=== PATIENT | male | born 1940 | race Caucasian/White ===

== ENCOUNTER → 2018-02-21 10:14 | Outpatient (CLI) | payer MEDICARE ==
[~2018-02-21 10:14] MED LIST: BAYER CHEWABLE81 MG PO; COZAAR100 MG PO; HYDROCHLOROTH12.5 M1 PO; HYDROCODON-ACE1 EAC7 PO; ZOCOR40 MG PO
[2018-03-10 13:24] VITALS: BMI 28.6
== END | disposition home or self-care (01) ==
LOC: D.US 08:30
DX: R74.8 Abnormal levels of other serum enzymes (principal)

== ENCOUNTER 2018-03-07 15:27 | Inpatient (IN) | payer MEDICARE ==
[2018-03-07] VITALS (7 sets, daily range): BP systolic 140–174; BP diastolic 75–99; BMI 30.1
[~2018-03-07] VITALS: Ht 177.8 cm; Wt 90.7 kg
--- NOTE | ~2018-03-07 | MORECARE ---
CASE MANAGEMENT DISCHARGE SUMMARY PATIENT: JERMAIN MADDEN UNIT: [id number] ADM DATE: 03/07/18 AGE: 77 : 42 SEX: M ROOM/BED: D.2130 AUTHOR: ANGELINE,DOC PHYSICIAN: REFERRING PHYSICIAN: ANGELIQUE FIGUEROA MD DATE OF SERVICE: 03/11/18 Discharge Plan Patient Name: JERMAIN MADDEN Facility: [facility]:[place] : 1940 Planned Disposition: Home Anticipated Discharge Date: 03/11/18 Discharge Date: 03/11/2018 Expected LOS: 4 Initial Reviewer: [email or web address] Initial Review Date: 03/11/2018 Generated: 03/11/18 5:56 pm Comments DCP- Discharge Planning Updated by [id number]: Cesar Greene on 03/11/18 3:[address] Patient Name: JERMAIN MADDEN Admission Status: ER Accout number: [id number] Admission Date: 03-07-2018 : 1940 Admission Diagnosis:BILIARY ACUTE PANCREATITIS WITHOUT NECROSIS OR INFECTIO Attending: ANGELIQUE FIGUEROA Current LOS: 4 Anticipated DC Date: 03-11-2018 Planned Disposition: Home Primary Insurance: [facility] [employer] [employer] Discharge Planning Comments: CM MET WITH PT AND SPOUSE IN ROOM TO DISCUSS DISCHARGE PLANNING AND NEEDS. JERMAIN MADDEN provided verbal consent to discuss current and ongoing needs with/in the presence of: SPOUSE, FAYE. PT REPORTS LIVING AT HOME INDEPENDENTLY WITH SPOUSE. PT HAS NO MEDICAL EQUIPMENT AND NO OUTSIDE SERVICES ASSISTING IN THE HOME. CM DISCUSSED AVAILABILITY OF HOME HEALTH, REHAB SERVICES AND MEDICAL EQUIPMENT. PT DENIES DISCHARGE NEEDS, REPORTS HIS IS HERE TO PICK HIM UP FOR DISCHARGE HOME. IMPORTANT MESSAGE FROM MEDICARE PROVIDED AND EXPLAINED. MAINTAINER PLANT NURSE NOTIFIED. Lot Technician: Cesar Greene DCPIA - Discharge Planning Initial Assessment Updated by [email or web address]: Cesar Greene on 03/11/18 4:54 pm * Is the patient Alert and Oriented? Yes * How many steps to enter\exit or inside your home? NONE * PCP DR. GUZMÁN * Pharmacy [facility] * Preadmission Environment Home with Family * ADLs Independent * Equipment None * Other Equipment [facility] - MEDICAL EQUIPMENT PROVIDER * List name and contact numbers for known caregivers / representatives who currently or will assist patient after discharge: KI WETZEL, * Verbal permission to speak to the caregivers and representatives has been obtained from the patient. Yes * Community resources currently utilized None * Please name any agencies selected above. NONE * Additional services required to return to the preadmission environment? No * Can the patient safely return to the preadmission environment? Yes * Has this patient been hospitalized within the prior 30 days at any hospital? No Coverage Notice Reviewer: [id number] Kathrine Greene Notice Issued Date-Time: 03/11/2018 14:40 Notice Type: IM Discharge Notice Notice Delivered To: Patient Relationship to Patient: Clamshell Operator Name: Delivery Method: HAND - Hand Delivered Pepper Days: Prior Verbal Notification: Recipient Understood Notice: Yes Recipient Signature: Yes Med Rec Note Co-signed by Attending: Coverage Notice Comment: Patient Name: JERMAIN MADDEN Page [id number] at 1657 All edits/amendments must be made on the electronic document DICTATION DATE: 03/11/181655 SANITARIAN: JESIKA 03/11/181655 RPT#: [id number] DC DATE:03/11/18 STATUS: DIS IN [facility] [address] [place] [address] END OF REPORT
--- NOTE | ~2018-03-07 | OP ---
PATIENT NAME: JERMAIN MADDEN MEDICAL RECORD: [id number] :42 LOCATION:D. D.2130 ADMISSION DATE:03/07/18 SURGEON: SABINE HOPPER MD DATE OF OPERATION: 03/10/2018 PREOPERATIVE DIAGNOSIS: 1. Gallstone pancreatitis. 2. Elevated liver function tests. POSTOPERATIVE DIAGNOSES: 1. Gallstone pancreatitis. 2. Elevated liver function tests. 3. Hepatomegaly. PROCEDURES: 1. Laparoscopic cholecystectomy. 2. Intraoperative cholangiography without immediate surgeon interpretation. 3. A 14-gauge core needle liver biopsy. SURGEON: Sabine Hopper MD CONSTRUCTION MANAGEMENT ASSISTANT: None. BLOOD LOSS: 150 cc. ANESTHESIA: General. COMPLICATIONS: None. The risks, possible complications, and alternatives to the procedure were explained to the patient. He elected to proceed. The discussion specifically included, but was not limited to, bleeding requiring emergency reoperation, infection, intestinal injury as well as an open procedure. OPERATIVE FINDINGS: Hepatomegaly. Dilated common duct; however, there was free flow of contrast into the duodenum. I contacted Dr. Burnette by phone during the procedure and informed him of the cholangiographic findings. I did encounter significant bleeding. This was controlled with electrocautery and then 2 different topical hemostatic agents. OPERATIVE COURSE: The patient was conveyed to the operating room. General anesthesia was induced by the anesthesia staff. The abdomen was sterilely prepped and draped. A small skin shira was accomplished in the left upper quadrant. The Veress needle was inserted through the skin shira into the peritoneal cavity. CO2 insufflation was begun. Once a sufficient pneumoperitoneum had been achieved, a 5-mm trocar was inserted through an incision in the right upper quadrant. Under direct internal vision utilizing a television camera, a 12-mm trocar was inserted through an incision at the umbilicus. Another 5-mm trocar was inserted through an incision in the epigastrium. Another 5-mm trocar was inserted far laterally in the right upper quadrant. During insertion of Veress needle and all trocars, there appeared to have been no injury to the bowels, any intraperitoneal or retroperitoneal structures. Under laparoscopic guidance, I percutaneously accessed the right upper quadrant OPERATIVE REPORT [id number] JERMAIN MADDEN utilizing a 14-gauge core needle liver biopsy device. Cores were obtained over the convexity of the liver. The biopsy sites were made hemostatic with electrocautery. I then advanced a cholangiogram trocar. I punctured the fundus of the gallbladder. I aspirated bile. I then injected dye. Real time cholangiographic images were obtained and are kept in the PACS system for the radiologist to review. I then aspirated bile and removed the cholangiogram trocar. I then grasped the gallbladder and retracted it cephalad. Blunt dissection was begun in the triangle of Calot. One cystic artery and one cystic duct were identified. These were clipped multiply and divided between clips. I then excised the gallbladder from its bed in the liver. I encountered significant bleeding, which was controlled with electrocautery. The gallbladder was placed within a bag retrieval device and was withdrawn through the umbilical fascial defect. The 12-mm trocar was placed and the abdomen was reinsufflated. I irrigated and aspirated in the right upper quadrant. A powdered hemostatic agent was added to the gallbladder fossa. Fibrillar was then added to the gallbladder fossa as well. There was no further bleeding. The fascia at the umbilicus was closed with the Espinoza-Ingrid suture closure device and #0 Vicryl sutures. The skin at the umbilicus was closed with interrupted 4-0 Vicryl Rapide sutures. All the trocars were removed and the abdomen was desufflated. The skin incisions were closed with interrupted intracuticular 3-0 Vicryls. Benzoin and Steri-Strips were applied. The patient was then extubated and conveyed to the post-anesthesia care unit, where he was in stable condition. TRANSINT:[id number] Voice Confirmation ID: [id number] DOCUMENT ID: [id number] SABINE HOPPER MD at 1653 CC: ANGELIQUE FIGUEROA MD, BURAK GUZMÁN MD and MOHSEN BURNETTE DO [id number] DICTATION DATE: 03/10/18 1554 COLLAR STITCHER: 03/10/18 1632 DIS IN 03/11/18 [facility] [address] [place] [id number]
[2018-03-07 16:08] LABS: BASOPHILS 0.1 % (0-2); EOSINOPHILS 0.5 % (0-7); HEMATOCRIT 46.4 % (42.0-54.0); HEMOGLOBIN 15.7 g/dL (13.5-17.5); IMMATURE GRANULOCYTES 0.3 % (0-5); MCH 31.4 pg (26.0-34.0); MCHC 33.8 g/dL (31.0-37.0); MCV 92.8 fL (80.0-100.0); MEAN PLATELET VOLUME 12.4 fL (7.4-10.4); MONOCYTES 4.6 % (2-11); NEUTROPHILS 89.5 % (40-80); PLATELET COUNT 190 10x3/uL (130-400); RDW 16.1 % (11.5-14.5); WBC 15.1 10x3/uL (4.8-10.8)
[2018-03-07 16:28] LABS: ALBUMIN 3.3 g/dL (3.4-5.0); ANION GAP 8.7 mmol/L (8-16); BILIRUBIN - TOTAL 12.22 mg/dL (0.2-1.3); CALCIUM 9.6 mg/dL (8.5-10.1); CARBON DIOXIDE 34.5 mmol/L (21.0-32.0); CREATININE - SERUM 1.2 mg/dL (0.6-1.3); POTASSIUM - SERUM 3.2 mmol/L (3.5-5.1); PROTEIN - SERUM 7.3 g/dL (6.4-8.2)
[2018-03-08] VITALS: BP 140/76
[2018-03-08 04:00] VITALS: BP 156/84
[2018-03-08 05:24] LABS: BASOPHILS 0.1 % (0-2); EOSINOPHILS 1.5 % (0-7); HEMATOCRIT 37.9 % (42.0-54.0); HEMOGLOBIN 12.9 g/dL (13.5-17.5); IMMATURE GRANULOCYTES 0.3 % (0-5); MCH 31.2 pg (26.0-34.0); MCV 91.8 fL (80.0-100.0); MEAN PLATELET VOLUME 12.3 fL (7.4-10.4); MONOCYTES 7.2 % (2-11); NEUTROPHILS 83.9 % (40-80); RBC 4.13 10x6/uL (4.20-6.10); RDW 16.1 % (11.5-14.5); WBC 11.4 10x3/uL (4.8-10.8)
[2018-03-08 05:37] LABS: PLATELET COUNT 133 10x3/uL (130-400)
[2018-03-08 06:02] LABS: ALKALINE PHOSPHATASE 606 U/L (46-116); ALT (SGPT) 171 U/L (10-68); BILIRUBIN - TOTAL 12.31 mg/dL (0.2-1.3); CALC OSMOLALITY 281 mosm/kg (275-300); CALCIUM 8.8 mg/dL (8.5-10.1); CARBON DIOXIDE 30.7 mmol/L (21.0-32.0); CHLORIDE - SERUM 105 mmol/L (98-107); GLUCOSE 111 mg/dL (74-106); PROTEIN - SERUM 5.5 g/dL (6.4-8.2); SODIUM 140 mmol/L (136-145); UREA NITROGEN 18 mg/dL (7-18); eGFR NON AFRICAN AMERICAN 77 mL/min (90-120)
[2018-03-08 06:09] LABS: ALBUMIN 2.3 g/dL (3.4-5.0); POTASSIUM - SERUM 2.9 mmol/L (3.5-5.1)
[2018-03-08 08:34] VITALS: BP 157/83
[2018-03-08] MEDS ORDERED: COZAAR100 MG PO (11:14)
[2018-03-08] MEDS ORDERED: ZOCOR40 MG PO (11:15)
[2018-03-08] MEDS ORDERED: HYDROCHLOROTH12.5 M1 PO (11:15)
[2018-03-08] MEDS ORDERED: BAYER CHEWABLE81 MG PO (11:16)
[2018-03-08 12:05] VITALS: BP 153/79
[2018-03-08 16:55] VITALS: BP 172/96
[2018-03-08 20:00] VITALS: BP 157/90
[2018-03-09 04:00] VITALS: BP 146/75
[2018-03-09 05:42] LABS: BASOPHILS 0 % (0-2); EOSINOPHILS 2.4 % (0-7); HEMATOCRIT 37.9 % (42.0-54.0); HEMOGLOBIN 12.7 g/dL (13.5-17.5); IMMATURE GRANULOCYTES 0.3 % (0-5); LYMPHOCYTES 11.5 % (15-50); MCH 30.8 pg (26.0-34.0); MCHC 33.5 g/dL (31.0-37.0); MEAN PLATELET VOLUME 12.2 fL (7.4-10.4); NEUTROPHILS 79.8 % (40-80); PLATELET COUNT 121 10x3/uL (130-400); RBC 4.12 10x6/uL (4.20-6.10); RDW 16.2 % (11.5-14.5)
[2018-03-09 06:15] LABS: ALBUMIN 2.1 g/dL (3.4-5.0); ALKALINE PHOSPHATASE 621 U/L (46-116); ALT (SGPT) 172 U/L (10-68); AMYLASE - SERUM 23 U/L (25-115); BILIRUBIN - TOTAL 11.51 mg/dL (0.2-1.3); CALC OSMOLALITY 279 mosm/kg (275-300); CALCIUM 8.7 mg/dL (8.5-10.1); CARBON DIOXIDE 27.9 mmol/L (21.0-32.0); CHLORIDE - SERUM 106 mmol/L (98-107); CREATININE - SERUM 0.9 mg/dL (0.6-1.3); GLUCOSE 113 mg/dL (74-106); LIPASE 98 U/L (73-393); MAGNESIUM - SERUM 1.7 mg/dL (1.8-2.4); POTASSIUM - SERUM 3.6 mmol/L (3.5-5.1); PROTEIN - SERUM 4.7 g/dL (6.4-8.2); SODIUM 140 mmol/L (136-145); UREA NITROGEN 12 mg/dL (7-18); eGFR NON AFRICAN AMERICAN 87 mL/min (90-120)
[2018-03-09 09:24] VITALS: BP 188/94
[2018-03-09 10:32] LABS: INR 1.14 (0.85-1.17); PROTIME 14.3 SECONDS (11.6-15.0)
[2018-03-09 13:28] VITALS: BP 195/97
[2018-03-09 20:00] VITALS: BP 185/107
[2018-03-10 04:00] VITALS: BP 160/70
[2018-03-10 06:55] LABS: BASOPHILS 0 % (0-2); EOSINOPHILS 0 % (0-7); HEMATOCRIT 38.8 % (42.0-54.0); IMMATURE GRANULOCYTES 0.3 % (0-5); MCH 30.9 pg (26.0-34.0); MCHC 33.5 g/dL (31.0-37.0); MCV 92.2 fL (80.0-100.0); MEAN PLATELET VOLUME 12.7 fL (7.4-10.4); MONOCYTES 3.4 % (2-11); NEUTROPHILS 89.3 % (40-80); PLATELET COUNT 163 10x3/uL (130-400); RBC 4.21 10x6/uL (4.20-6.10); WBC 7.5 10x3/uL (4.8-10.8)
[2018-03-10 07:11] LABS: ALBUMIN 2.1 g/dL (3.4-5.0); ANION GAP 10.9 mmol/L (8-16); BILIRUBIN - TOTAL 8.62 mg/dL (0.2-1.3); CARBON DIOXIDE 27.7 mmol/L (21.0-32.0); CREATININE - SERUM 1.1 mg/dL (0.6-1.3); MAGNESIUM - SERUM 1.7 mg/dL (1.8-2.4); POTASSIUM - SERUM 3.6 mmol/L (3.5-5.1); PROTEIN - SERUM 5.5 g/dL (6.4-8.2)
[2018-03-10 10:48] VITALS: BP 160/88
[2018-03-10 13:24] VITALS: Ht 177.8 cm; Wt 90.7 kg
[2018-03-10 20:00] VITALS: BP 125/53
[2018-03-11] VITALS: BP 140/60
[2018-03-11 04:00] VITALS: BP 150/62
[2018-03-11 06:07] LABS: BASOPHILS 0 % (0-2); EOSINOPHILS 0.1 % (0-7); HEMATOCRIT 37.6 % (42.0-54.0); HEMOGLOBIN 12.2 g/dL (13.5-17.5); IMMATURE GRANULOCYTES 0.5 % (0-5); LYMPHOCYTES 8.4 % (15-50); MCH 30.6 pg (26.0-34.0); MCHC 32.4 g/dL (31.0-37.0); MEAN PLATELET VOLUME 12.7 fL (7.4-10.4); MONOCYTES 5.4 % (2-11); NEUTROPHILS 85.6 % (40-80); PLATELET COUNT 185 10x3/uL (130-400); RBC 3.99 10x6/uL (4.20-6.10); RDW 16.2 % (11.5-14.5)
[2018-03-11 06:31] LABS: MCV 94.2 fL (80.0-100.0); WBC 10.3 10x3/uL (4.8-10.8)
[2018-03-11 06:39] LABS: ALBUMIN 2.3 g/dL (3.4-5.0); BILIRUBIN - TOTAL 5.66 mg/dL (0.2-1.3); CARBON DIOXIDE 32.2 mmol/L (21.0-32.0); MAGNESIUM - SERUM 1.7 mg/dL (1.8-2.4); POTASSIUM - SERUM 3.2 mmol/L (3.5-5.1); PROTEIN - SERUM 5.8 g/dL (6.4-8.2)
[2018-03-11 06:42] LABS: CREATININE - SERUM 1.4 mg/dL (0.6-1.3)
[2018-03-11 08:47] VITALS: BP 156/82
[2018-03-11 11:48] VITALS: BP 136/76
[2018-03-11 14:58] VITALS: BP 156/87
[2018-03-11] MEDS ORDERED: HYDROCODON-ACE1 EAC7 PO (15:03)
== END 2018-03-11 16:16 | disposition home or self-care (01) | DRG 417 ==
LOC: D.ER 15:27 → D.M2 21:31
PROVIDERS: Emergency Medicine; Family Medicine; Internal Medicine Gastroenterology; Surgery
PROC: 0FC98ZZ Extirpation of Matter from Common Bile Duct, Via Natural or Artificial Opening Endoscopic (ICD-10-PCS; principal; 2018-03-09 14:16)
PROC: 0FB04ZX Excision of Liver, Percutaneous Endoscopic Approach, Diagnostic (ICD-10-PCS; 2018-03-10)
PROC: BF101ZZ Fluoroscopy of Bile Ducts using Low Osmolar Contrast (ICD-10-PCS; 2018-03-10)
PROC: 0FT44ZZ Resection of Gallbladder, Percutaneous Endoscopic Approach (ICD-10-PCS; 2018-03-10 09:30)
DX: K80.50 Calculus of bile duct without cholangitis or cholecystitis without obstruction (principal); K85.10 Biliary acute pancreatitis without necrosis or infection; F17.213 Nicotine dependence, cigarettes, with withdrawal; R74.8 Abnormal levels of other serum enzymes; R16.0 Hepatomegaly, not elsewhere classified; E78.5 Hyperlipidemia, unspecified; I10 Essential (primary) hypertension; I25.10 Atherosclerotic heart disease of native coronary artery without angina pectoris

== ENCOUNTER → 2019-03-11 09:30 | Outpatient (CLI) | payer MEDICARE ==
[2018-03-10 13:24] VITALS: BMI 28.6
== END | disposition home or self-care (01) ==
LOC: D.HCCARDIO 09:30
PROVIDERS: ATTEND Internal Medicine Cardiovascular Disease
DX: R94.31 Abnormal electrocardiogram [ECG] [EKG] (principal)

== ENCOUNTER 2019-04-06 10:30 | Outpatient (CLI) | payer MEDICARE ==
[~2019-04-06] VITALS: Ht 177.8 cm; Wt 100.0 kg
--- NOTE | ~2019-04-06 | HEMODYNAMI ---
PATIENT:JERMAIN MADDEN MEDICAL RECORD: [id number] : 42 LOCATION:D.CAT ADMISSION DATE: 04/06/19 Generatedon:04/06/201913:39 Patient name: JERMAIN MADDEN Patient #: [id number] SSN: : 1940 Date of study: 04/06/2019 Page: Of Hemodynamic Procedure Report Patient Data Patient Demographics Procedure consent was obtained First Name: JERMAIN Gender: Male Last Name: MARYANNE : 1940 [facility] Initial: IG Age: 78 year(s) Patient #: [id number] Race: Additional ID: [id number] Contact details [address]: [address] [place] [address] State: [place] City: [place] Zip code: [address] Past Medical History Performed procedures and imaging results Date Procedure Procedure Results Comments Stress testing Positive->Intermediate with SPECT MPI risk Allergies: No known allergies Admission Admission Data Admission Date: 04/06/2019 Admission Time: 10:30 Arrival Date: 04/06/2019 Arrival Time: 0:00 Admit Source: Other Insurance Payor: Medicare [facility] #: [id number] Height (in.): 69.69 BSA: 2.17 (m2) Height (cm.): 177 BMI: 31.92 (kg/m2) Weight (lbs.): 220.46 Weight (kg.): 100 Lab Results Lab Result Date: 04/06/2019 Lab Result Time: 0:00 Biochemistry Name Units Result Min Max BUN mg/dl 20 --(----)*- 7 18 Creatinine mg/dl 1.2 --(---*)-- 0.6 1.3 eGFR ml/min 61.04315 *-(----)-- 90 120 NONAFRICAN CBC Name Units Result Min Max Hematocrit % 51.6 --(---*)-- 42 54 Hemoglobin g/dl 17.9 --(----)*- 13.5 17.5 Procedure Procedure Types Cath Procedure Diagnostic Procedure LHC LHC w/Coronaries Sedation Charges Moderate Sedation up to 15 minutes Procedure Description Procedure Date Procedure Date: 04/06/2019 Procedure Start Time: 13:23 Procedure End Time: 13:37 Procedure Staff Name Function Elie Titus MD Performing Physician Екатерина Denis RT Monitor Jessica Barnett RT Monitor Sebastian Morris RT Scrub Trice Ernandez RN Nurse Procedure Data Cath Procedure Fluoroscopy Diagnostic fluoroscopy Total fluoroscopy Time: 2.5 time: 2.5 min min Diagnostic fluoroscopy Total fluoroscopy dose: 662 dose: 662 mGy mGy Contrast Material Contrast Material Type Amount (ml) Isovue 300 49 Entry Location Entry Primary Successful Side Size Upsize Upsize Entry Closure Mo ccessful Closure Location (Fr) 1 (Fr) 2 (Fr) Remarks Device Remarks Radial Right 5 Fr Mechanical artery Compression Estimated blood loss: 5 ml Diagnostic catheters Device Type Used For End Catheter Placement DIAGNOSTIC Sanford 110cm Procedure 5Fr catheter ([id number]) Procedure Complications No complications Procedure Medications Medication Administration Route Dosage Oxygen etCO2 Nasal cannula 2 l/min Lidocaine 2% added to field 20 Heparin Flush Bag added to field 2 bags (1000units/500ml NS) 0.9% NaCl I.V. 100 ml/hr Radial Cocktail I.A. 1 syringe (Verapamil 2mg/Nitro 400mcg/Heparin 1500units) Versed I.V. 1 mg Fentanyl I.V. 50 mcg Versed I.V. 1 mg Fentanyl I.V. 50 mcg Versed I.V. 1 mg Hemodynamics Rest BSA: 2.17 (m2) HGB: 17.9 (g/dl) O2 Consumption: Estimated: 250.55 (ml/min) O2 Co nsumption indexed: Estimated:115.46 (ml/min/m) Heart Rate: 72 (bpm) Pressure Samples Time Site Value (mmHg) Purpose Heart Use Rate(bpm) 13:26 LV 134/6,22 Snapshot 80 Gradients Valve Time Site Site Mean SEP/DFP Peak To Heart Use 1 2 (mmHg) (sec/min) Peak Rate (mmHg) (bpm) Aortic 13:27 LV AO 51 Snapshots Pre Cath Intra NCS Post Cath Vital Signs Time Heart Resp SPO2 etCO2 NIBP (mmHg) Rhythm Pain Sedation Rate (ipm) (%) (mmHg) Status Level (bpm) 13:07:36 72 19 97 37.2 184/115(165) NSR 0 (11) 10(A) , No pain 13:12:07 69 14 92 36.5 167/91(131) NSR 0 (11) 10(A) , No pain 13:16:29 69 18 93 38.7 147/88(124) NSR 0 (11) 10(A) , No pain 13:20:51 69 14 92 41.7 144/78(115) NSR 0 (11) 10(A) , No pain 13:25:13 66 15 94 33.5 138/77(106) NSR 0 (11) 9(A) , No pain 13:29:25 70 23 94 32.8 114/74(90) NSR 0 (11) 9(A) , No pain 13:33:41 74 19 93 23.1 103/70(86) NSR 0 (11) 10(A) , No pain 13:37:51 92 35 114/73(100) NSR 0 (11) 9(A) , No pain Medications Time Medication Route Dose Verified Delivered Reason Notes Effectiveness by by 13:09:03 Oxygen etCO2 2 l/min Elie Buffie used for Nasal Tacho Ernandez RN procedure cannula 13:09:48 Lidocaine 2% added 20ml Elie Elie for local to vial Tacho Titus MD anesthetic field 13:09:54 Heparin Flush added 2 bags Elie Elie used for Bag to Tacho Titus MD procedure (1000units/500ml field NS) 13:10:08 0.9% NaCl I.V. 100 Elie Buffie used for ml/hr Tacho Ernandez learning support specialist 13:17:46 Versed I.V. 1 mg Elie Buffie for sedation Tacho Ernandez RN 13:18:03 Fentanyl I.V. 50 mcg Elie Buffie for sedation Tacho Ernandez RN 13:20:13 Versed I.V. 1 mg Elie Buffie for sedation Tacho Ernandez RN 13:20:17 Fentanyl I.V. 50 mcg Elie Buffie for sedation Tacho Ernandez RN 13:25:30 Radial Cocktail I.A. 1 Elie Elie for (Verapamil syringe Tacho Titus MD vasodilation 2mg/Nitro 400mcg/Heparin 1500units) 13:29:11 Versed I.V. 1 mg Elie Elie for sedation Tacho Titus MD Procedure Log Time Note 12:46:29 Informed consent obtained and on chart 12:47:06 Procedure Status Elective Heart Cath (OP). 12:47:07 Time tracking: Regular hours (M-F 7:00 - 5:00) 12:47:10 Plan of Care:Hemodynamics will remain stable., Cardiac rhythm will remain stable., Comfort level will be maintained., Respiratory function will remain adequate., Patient/ family verbilizes understanding of procedure., Procedure tolerated without complication., Recovers from procedure without complications.. 12:47:12 H&P Date Dictated: 04/06/2019 Within 30 days and on chart., H&P Addendu m completed by physician on day of procedure. (MUST COMPLETE FOR ALL OUTPATIENTS). 12:48:34 Patient Weight : 220.46 lbs 12:48:38 Patient Height : 69.69 inches 12:48:41 Arrival Date: 04/06/2019 12:00:00 AM 12:50:36 Sebastian NERI(R) sent for patient. Start room use. 12:51:28 Stress Test: yes; abnormal INFERIOR AND APICAL. 12:54:24 Risk of Mortality: 1.2 12:54:26 Risk of blood transfusion: .1 12:54:30 Risk of DANDY: 3.7 12:56:26 Patient received from Pre/Post Procedure Room to CCL 1 Alert and oriented. Tansferred to table in Supine position. 12:56:28 Warm blankets applied, and jaleel hugger turned on for patient comfort. 12:56:29 Correct patient and procedure confirmed by team. 12:56:31 ECG and BP/O2 sat monitors applied to patient. 13:01:07 Pre-procedure instructions explained to patient. 13:01:08 Pre-op teaching completed and patient verbalized understanding. 13:01:12 Family in patients room. 13:01:15 Patient NPO since Midnight. 13:01:32 Patient allergic to No known allergies 13:03:29 ACC Patient presents with No angina; no symptoms CCS Anginal Class 0--No symptoms, no angina. 13:04:34 ACCPatient has been prescribed/administered the following anti-anginal medication within the last 2 weeks: ARB 13:05:00 Vital chart was started 13:05:02 Baseline sample Acquired. 13:05:51 Rhythm: sinus rhythm 13:05:58 Full Disclosure recording started 13:05:59 - 13:06:05 Is the patient allergic to Iodine/contrast media? No. 13:06:07 Was the patient premedicated? Yes 13:06:10 Is patient on blood thinner?No 13:06:33 Patient diabetic? No. 13:06:35 ----Pre-sedation anethsthesia assessment.---- 13:06:39 Previous problem with sedation/anesthesia? No ? 13:06:47 Snore? Yes 13:06:50 Sleep apnea? No 13:06:53 Deviated septum? No 13:06:56 Opens mouth fully? Yes 13:06:58 Sticks out tongue? Yes 13:07:02 Airway obstruction? No ? 13:07:11 Dentures? Yes IN TIGHT 13:07:30 Pre procedure: right dorsailis pedis pulse 2+ Normal; easily identifiable; not easily obliterated 13:07:37 Modified Yordan's test Ulnar < 7 seconds 13:07:46 Patient pain scale 0/10 ?. 13:08:07 IV patent on arrival in right antecubital with 0.9% NaCl at O. 13:09:01 Lab Result : Hemoglobin 17.9 g/dl 13:09:01 Lab Result : eGFR NONAFRICAN 61.24619 ml/min 13:09:01 Lab Result : BUN 20 mg/dl 13:09:01 Lab Result : Creatinine 1.2 mg/dl 13:09:01 Lab Result : Hematocrit 51.6 % 13:09:03 Oxygen 2 l/min etCO2 Nasal cannula was administered by Trice Ernandez RN; used for procedure; Verbal order read back and verified. 13:09:11 Lab results completed and on chart. 13:09:17 Right Radial & Right Groin area was prepped with chlora-prep and draped in sterile fashion 13:09:18 Alarms reviewed by Krista Wren 13:09:19 Sharps counted by scrub and verified by R.N. 13:09:48 Lidocaine 2% 20ml vial added to field was administered by Elie Titus MD ; for local anesthetic; Verbal order read back and verified. 13:09:54 Heparin Flush Bag (1000units/500ml NS) 2 bags added to field was administered by Elie Titus MD; used for procedure; Verbal order read back and verified. 13:10:08 0.9% NaCl 100 ml/hr I.V. was administered by Trice Ernandez RN; used for procedure; Verbal order read back and verified. 13:11:02 Use device set Radial Dx or PCI 13:11:06 ACIST Syringe (28973) opened to sterile field. 13:11:07 Medline Cath Pack ([id number]) opened to sterile field. 13:11:08 Bag Decanter (2002S) opened to sterile field. 13:11:09 ACIST Hand Control (67701) opened to sterile field. 13:11:10 ACIST Manifold (60381) opened to sterile field. 13:11:11 Tegaderm 4 x 4 (1626W) opened to sterile field. 13:11:12 MBrace Wrist Support ([id number]) opened to sterile field. 13:11:15 EMERALD Guide Wire (328-376) opened to sterile field. 13:11:16 SHEATH 6FR RAIN (2378984) opened to sterile field. 13:11:18 NEEDLE Cook 21G 4cm Radial (D14226) opened to sterile field. 13:14:16 Zero performed for pressure channel P1 13:14:28 Physician arrived 13:14:29 --------ALL STOP TIME OUT------ 13:14:29 Final Timeout: patient, procedure, and site verified with staff and physician. All members of the team are in agreement. 13:14:33 Right Radial & Right Groin site verified by team. 13:14:41 Fire Safety Assessment: A--An alcohol-based skin anteseptic being used preoperatively., C--Open oxygen or nitrous oxide is being used., D--An ESU, laser, or fiber-optic light is being used. 13:14:47 Physical assessment completed. ASA score P 2 - A patient with mild systemic disease as per Elie Titus MD. 13:14:54 2) 60-89 Mildly reduced kidney function, and other findings (as for stage 1) point to kidney disease. 13:14:59 Maximum allowable contrast dose (3.7 X eGFR X 0.75)172 ml. 13:15:06 Sedation plan: IV Moderate Sedation Medication:Versed, Fentanyl 13:16:26 Zero performed for pressure channel P1 13:17:46 Versed 1 mg I.V. was administered by Trice Ernandez RN; for sedation; Verbal order read back and verified. 13:18:03 Fentanyl 50 mcg I.V. was administered by Trice Ernandez RN; for sedation; Verbal order read back and verified. 13:18:18 Insurance Payor : Medicare 13:18:21 Admit Source: Other 13:20:13 Versed 1 mg I.V. was administered by Trice Ernandez RN; for sedation; Verbal order read back and verified. 13:20:17 Fentanyl 50 mcg I.V. was administered by Trice Ernandez RN; for sedation; Verbal order read back and verified. 13:21:43 Procedure started. 13:23:20 Local anesthetic to right radial artery with Lidocaine 2% by Elie Titus MD.INITIAL ACCESS ONLY 13:24:49 A 5 Fr sheath was inserted into the Right Radial artery 13:25:19 A DIAGNOSTIC Sanford 110cm 5Fr catheter ([id number]) was advanced over the wire and used for Procedure. 13:25:30 Radial Cocktail (Verapamil 2mg/Nitro 400mcg/Heparin 1500units) 1 syring e I.A. was administered by Elie Titus MD; for vasodilation; Verbal order read back and verified. 13:26:24 LV gram done using PARMAR 13:26:55 Injector settings: Ml/sec: 5, Volume: 15, 13:27:06 EF : 50 % 13:27:36 LV hemodynamics recorded. 13:27:51 RCA angiography performed. 13:28:09 Injector settings: Ml/sec: 3, Volume: 6, 13:28:38 LCA angiography performed. 13:29:11 Versed 1 mg I.V. was administered by Elie Titus MD; for sedation; Verba l order read back and verified. 13:29:11 Injector settings: Ml/sec: 3, Volume: 6, 13:29:44 ACCDominant side:Right 13:33:03 Catheter removed. 13:33:14 ZEPHYR REGULAR TR BAND (199980) opened to sterile field. 13:33:26 Procedure ended.(Physican Out) 13:33:34 Sheath removed intact; hemostasis achieved with Mechanical Compression to the Right Radial artery. 13:33:57 Contrast amount:Isovue 300 49ml. 13:34:02 Maximum allowable dose exceeded? No. 13:34:10 Fluoroscopy time 02.50 minutes. 13:34:40 Flurop Dose total: 662 13:34:40 Fluoroscopy dose: 662 mGy 13:34:48 Dose Area Product 73900 mGy/cm. 13:34:52 Sharps counted by scrub and verified by R.N. 13:34:59 [place] band inflated with 10cc of air. 13:35:01 Insertion/operative site no bleeding no hematoma. 13:35:11 Post right radial artery:stable 13:35:14 Post Procedure Pulses reassessed and unchanged 13:35:32 Post-procedure physical assessment completed. ASA score P 2 - A patient with mild systemic disease as per Elie Titus MD. 13:35:38 Post procedure rhythm: unchanged. 13:35:44 Estimated blood loss: 5 ml 13:35:47 Post procedure instruction explained to patient.Patient verbalizes understanding. 13:35:48 Patient needs reinforcement of post procedure teaching. 13:36:01 Procedure type changed to Cath procedure, Diagnostic procedure, LHC, C w/Coronaries, Sedation Charges, Moderate Sedation up to 15 minutes 13:36:04 Procedure and supply charges have been captured, reviewed, submitted an d are correct. 13:36:59 Procedure Complication : No complications 13:37:03 Vital chart was stopped 13:37:14 [facility] Findings: mild to moderate CAD (<70%) 13:37:19 Operative report dictated upon procedure completion. 13:37:20 See physician's report for complete and final results. 13:37:23 Report given to Pre/Post Procedure Room. 13:37:27 Patient transfered to Pre/Post Procedure Room with Stretcher. 13:37:30 Procedure ended. 13:37:30 Full Disclosure recording stopped 13:37:33 End room use (Document Last) Device Usage Item Name Manufacture Quantity Catalog Hospital Part Current Minima l Lot# / Number Charge Number Stock Stock Serial# Code ACIST Acist 1 03455 803946 [id number] [id number] 20 Syringe Medical (27490) Systems Inc Medline Medline 1 [id number] 105962 59291 936398 5 Cath Pack ([id number]) Bag Microtek 1 2001S 345830 61209 449631 5 Decanter Medical Inc. (2001S) ACIST Hand Acist 1 46007 811159 906981 898696 5 Control Medical (24958) Systems Inc ACIST Acist 1 86565 781448 468375 537982 5 Manifold Medical (22359) Systems Inc Tegaderm 4 3M 1 1626W 521733 693143 614998 5 x 4 (1626W) MBrace Advanced 1 140-0250-00 710782 22209 765911 5 Wrist Vascular Support Dynamics ([id number]) EMERALD Cardinal 1 502-044 460642 256437 684664 5 Guide Wire Health (027-455) SHEATH 6FR Cardinal 1 1215508 503002 4451027 707350 5 [facility] Health (4857135) NEEDLE Cook Cook Medical 1 [id number] 295638 087006 237174 5 21G 4cm Radial (N26421) DIAGNOSTIC Terumo 1 40-0861 757594 937162 072740 5 Sanford 110cm 5Fr catheter (339842) ZEPHYR Cardinal 1 082792 587002 2824370 786096 5 REGULAR TR Health BAND (090132) Signature Audit [place] Stage Time Signature Unsigned Intra-Procedure 04/06/2019 Jessica 1:38:12 PM Anibal RT(R) (CV) Intra-Procedure 04/06/2019 Trice Ernandez RN 1:38:46 PM Intra-Procedure 04/06/2019 Elie Titus MD 1:39:23 PM [facility] [address] [id number]
[2019-04-06 11:11] VITALS: BP 217/121; Ht 177.8 cm; Wt 100.0 kg
[2019-04-06 11:27] LABS: BASOPHILS 0 % (0-2); EOSINOPHILS 1.3 % (0-7); HEMATOCRIT 51.6 % (42.0-54.0); HEMOGLOBIN 17.9 g/dL (13.5-17.5); IMMATURE GRANULOCYTES 0.1 % (0-5); LYMPHOCYTES 16.5 % (15-50); MCH 31.4 pg (26.0-34.0); MCHC 34.7 g/dL (31.0-37.0); MCV 90.5 fL (80.0-100.0); MEAN PLATELET VOLUME 11.4 fL (7.4-10.4); MONOCYTES 6.5 % (2-11); NEUTROPHILS 75.6 % (40-80); RDW 13.8 % (11.5-14.5); WBC 7.5 10x3/uL (4.8-10.8)
[2019-04-06 11:36] LABS: CALCIUM 9.3 mg/dL (8.5-10.1); CHOL - HDL RATIO 2.2 ratio (2.3-4.9); CREATININE - SERUM 1.2 mg/dL (0.6-1.3); LDL-HDL RATIO 0.9 ratio (1.5-3.5)
[2019-04-06 11:38] VITALS: BP 174/98
[2019-04-06 11:48] LABS: PLATELET COUNT 141 10x3/uL (130-400)
--- NOTE | 2019-04-06 13:40 | NUR ---
PT RECEIVED VIA STRECTHER FROM FURNITURE FABRICATOR FOR RECOVERY. PT AWAKE AND ALERT, DENIES PAIN OR DISCOMFORT. ZYPHER BAND AND IMMOBILIZER TO R WRIST, DRESSING CDI NO BLEEDING OR S/S HEMATOMA NOTED. ARM PINK AND WARM, CAP REFILL BRISK. PT PLACED ON CARDIAC MONITORS, HR NSR RATE 72, BP 140/81, SAT 90. IV PATENT INFUSING VIA ORDERS. CALL LIGHT IN REACH. DR BETHEA AT DISCUSSING PLAN OF CARE AND PROCEDURE RESULTS TO PT AND FAMILY.
--- NOTE | 2019-04-06 14:00 | NUR ---
PT RESTING COMFORTABLY. DENIES PAIN OR NEEDS. TOLERATING PO FLUIDS. Z BAND AND IMMOBILIZER IN PLACE, DRESSING CDI NO BLEEDING OR S/S HEMATOMA NOTED. HR 69, BP 131/81, SAT 92 ON 2L/NC. CALL LIGHT IN REACH, FAMILY AT BS.
--- NOTE | 2019-04-06 14:45 | NUR ---
PT RESTING W/O COMPLAINTS. Z BAND AND IMMOBILIZER IN PLACE, DRESSING CDI NO BLEEDING OR S/S HEMATOMA NOTED. VSS. CALL LIGHT IN REACH. 3CC AIR REMOVED FROM Z BAND, NO BLEEDING NOTED.
--- NOTE | 2019-04-06 15:11 | NUR ---
3 ADD'L CC REMOVED FROM Z BAND, NO BLEEDING OR S/S HEMATOMA NOTED. PT DENIES DISCOMFORT OR NEEDS AT THIS TIME. CALL LIGHT IN REACH, AT BEDSIDE
--- NOTE | 2019-04-06 15:20 | NUR ---
DISCHARGE INSTRUCTIONS REVIEWED W PT AND , HE VERBALIZED UNDERSTANDING. IV REMOVED W CATH INTACT, MONITORS REMOVED AND PT UP TO DRESS FOR DISCHARGE.
--- NOTE | 2019-04-06 15:30 | NUR ---
PT AMBULATED TO BR, VOIDING W/O DIFFICULITY. BACK TO ROOM, ZBAND AND REMAINING AIR REMOVED W/O BLEEDING OR S/S HEMATOMA NOTED. 2X2 AND TEGADERM DRESSING APPLIED. 1540 PT DISCHARGED VIA WC TO FAMILY WAITING IN PRIVATE VEHICLE. PT HAD ALL BELONGINGS AND DISCHARGE INFORMATION
== END 2019-04-06 15:40 | disposition home or self-care (01) ==
LOC: D.CATH 10:30
PROVIDERS: ATTEND Internal Medicine Cardiovascular Disease
DX: R94.30 Abnormal result of cardiovascular function study, unspecified (principal); I10 Essential (primary) hypertension; R94.31 Abnormal electrocardiogram [ECG] [EKG]; Z72.0 Tobacco use